=== PATIENT | male | born 1975 | race Hispanic/Latino ===

== ENCOUNTER → 2024-04-30 | Outpatient (CLI) | payer OTHER ==
[~2024-04-30] MED LIST: FLUC50TA29 PO; INDO50CA98 PO; METR-361 PO
== END | disposition home or self-care (01) ==
LOC: SHCH 14:49
PROVIDERS: ATTEND Internal Medicine Cardiovascular Disease
DX: I08.0 Rheumatic disorders of both mitral and aortic valves (principal); I25.10 Atherosclerotic heart disease of native coronary artery without angina pectoris
CPT/HCPCS: 93306; 93356